=== PATIENT | female | born 1995 | race Caucasian/White ===

== ENCOUNTER 2017-01-20 18:10 | Emergency (ER) | payer BC ==
[2017-01-20 18:15] VITALS: BP 120/67; PULSE 85; TEMP 98.7; BMI 21.9
[2017-01-20] MEDS ORDERED: DIPHTH,PERTUSS(ACELL),TET 0.5 ML DISP.SYRIN IM ONE (18:32)
--- NOTE | 2017-01-20 19:05 | PDOC ---
[id number] No Limitations - History of Present Illness Initial Comments: 01/20/17 19:06 Patient is a 21 year old female, right hand dominant, with no significant past medical history who presents to the ED with laceration to the right index finger. Patient states that she was doing the dishes as she cut her finger on a broken glass, the glass did not shatter. Patient is unsure of her last Tetanus shot. <Cristiane Durán - Last Filed: 01/20/17 19:06> - General History Source: Patient Exam Limitations: No Limitations <Donell Garay - Last Filed: 01/28/17 07:38> - General Chief Complaint: Laceration Stated Complaint: LACERATION TO RIGHT INDEX FINGER Time Seen by Provider: 01/20/17 18:21 Past History <Cristiane Durán - Last Filed: 01/20/17 19:06> - Past Medical History Other medical history: PT DENIES - Immunization History Immunization Up to Date: Yes - Psycho/Social/Smoking Cessation Hx Anxiety: No Suicidal Ideation: No Smoking Status: No Smoking History: Current some day smoker Have you smoked in the past 12 months: No Number of Cigarettes Smoked Daily: 1 Information on smoking cessation initiated: No Hx Alcohol Use: Yes (OCCASIONALLY) Drug/Substance Use Hx: No Substance Use Type: None <Donell Garay - Last Filed: 01/28/17 07:38> - Past Medical History Allergies/Adverse Reactions: Allergies Allergy/AdvReac Type Severity Reaction Status Date / Time No Known Allergies Allergy Verified 01/20/17 18:12 Home Medications: Ambulatory Orders NK [No Known Home Medication] 03/20/15 Review of Systems - Review of Systems Able to Perform ROS?: Yes Comments:: 01/20/17 19:07 GENERAL/CONSTITUTIONAL: No fever or chills. No weakness. HEAD, EYES, EARS, NOSE AND THROAT: No change in vision. No ear pain or discharge. No sore throat. CARDIOVASCULAR: No chest pain or shortness of breath. RESPIRATORY: No cough, wheezing, or hemoptysis. GASTROINTESTINAL: No nausea, vomiting, diarrhea or constipation. GENITOURINARY: No dysuria, frequency, or change in urination. MUSCULOSKELETAL: No joint or muscle swelling or pain. No neck or back pain. SKIN: (+)laceration to 2nd right digit. No rash NEUROLOGIC: No headache, vertigo, loss of consciousness, or change in strength/ sensation. ENDOCRINE: No increased thirst. No abnormal weight change. HEMATOLOGIC/LYMPHATIC: No anemia, easy bleeding, or history of blood clots. ALLERGIC/IMMUNOLOGIC: No hives or skin allergy. <Cristiane Durán - Last Filed: 01/20/17 19:06> *Physical Exam - Vital Signs Last Vital Signs Temp Pulse Resp BP Pulse Ox 98.7 F 85 18 120/67 100 01/20/17 18:11 01/20/17 18:11 01/20/17 18:11 01/20/17 18:11 01/20/17 18:11 - Physical Exam Comments: 01/20/17 19:07 GENERAL/CONSTITUTIONAL: No fever or chills. No weakness. HEAD, EYES, EARS, NOSE AND THROAT: No change in vision. No ear pain or discharge. No sore throat. CARDIOVASCULAR: No chest pain or shortness of breath. RESPIRATORY: No cough, wheezing, or hemoptysis. GASTROINTESTINAL: No nausea, vomiting, diarrhea or constipation. GENITOURINARY: No dysuria, frequency, or change in urination. MUSCULOSKELETAL: No joint or muscle swelling or pain. No neck or back pain. SKIN: (+)laceration to 2nd right digit. No rash NEUROLOGIC: No headache, vertigo, loss of consciousness, or change in strength/ sensation. ENDOCRINE: No increased thirst. No abnormal weight change. HEMATOLOGIC/LYMPHATIC: No anemia, easy bleeding, or history of blood clots. ALLERGIC/IMMUNOLOGIC: No hives or skin allergy. <Cristiane Durán - Last Filed: 01/20/17 19:06> - Vital Signs Last Vital Signs Temp Pulse Resp BP Pulse Ox 98.7 F 85 18 120/67 100 01/20/17 18:11 01/20/17 18:11 01/20/17 18:11 01/20/17 18:11 01/20/17 18:11 - Physical Exam Comments: PE: Full strength of extension and flexion of all digits. < 2 sec cap refill. Sensation intact throughout. <Donell Garay - Last Filed: 01/28/17 07:38> Procedures - Laceration/Wound Repair Right 2nd digit Wound Length: to 2.5 cm Wound Explored: clean Wound's Depth, Shape: superficial Irrigated w/ Saline: Yes Betadine Prep: Yes Anesthesia: 1% Lidocaine Amount of Anesthetic (ccs): 2 Wound Debrided: minimal Wound Repaired With: Sutures Suture Size/Type: 4:0 Number of Sutures: 3 Layer Closure: No <Donell Garay - Last Filed: 01/28/17 07:38> ED Treatment Course - Medications Given in the ED: ED Medications Discontinued Medications Generic Name Dose Route Start Last Admin Trade Name Freq PRN Reason Stop Dose Admin Diphtheria/Tetanus/Acell Pertussis 0.5 ml 01/20/17 18:32 01/20/17 18:42 Boostrix - IM 01/20/17 18:33 0.5 ml .ONCE ONE Administration <Cristiane Durán - Last Filed: 01/20/17 19:06> - Medications Given in the ED: ED Medications Discontinued Medications Generic Name Dose Route Start Last Admin Trade Name Freq PRN Reason Stop Dose Admin Diphtheria/Tetanus/Acell Pertussis 0.5 ml 01/20/17 18:32 01/20/17 18:42 Boostrix - IM 01/20/17 18:33 0.5 ml .ONCE ONE Administration <Donell Garay - Last Filed: 01/28/17 07:38> Medical Decision Making - Medical Decision Making 01/20/17 19:04 A portion of this note was documented by scribe services under my direction. I have reviewed the details of the note, within reason, and agree with the documentation with the following case summary and management plan written by me. Patient treated in the ED. Nursing notes are reviewed and incorporated into the medical decision-making. Vital signs reviewed. Peripheral IV access obtained by the nurse, laboratory studies are drawn and sent, reviewed and interpreted by myself. Vital Signs Temp Pulse Resp BP Pulse Ox 98.7 F 85 18 120/67 100 01/20/17 18:11 01/20/17 18:11 01/20/17 18:11 01/20/17 18:11 01/20/17 18:11 21-year-old female with no medical history presents with laceration to second digit on the right hand. Patient is right-hand dominant. She has like herself a glass. Glass denies shattered. Last tetanus unknown. Wound was irrigated with Betadine and iodine and normal saline. Local anesthesia was achieved with 1% lidocaine without epinephrine. 3 4-0 nylon interested sutures placed with excellent approximation. Scar precautions were given. Tetanus was updated. Wound care sutures were given. Patient instructed to return in 7-10 days for wound reevaluation and suture removal. I discussed the physical exam findings, ancillary test results and final diagnoses with the patient. I answered all of the patient's questions. The patient was satisfied with the care received and felt comfortable with the discharge plan and treatment plan. The patient will call their primary care physician within 24 hours to arrange follow-up and will return to the Emergency Department with any new, persistant or worsening symptoms. <Donell Garay - Last Filed: 01/28/17 07:38> *DC/Admit/Observation/Transfer - Attestations Scribe Attestion: 01/20/17 19:07 Documentation prepared by GENNY Thompson, acting as biomedical instrument technician for Donell Garay MD. <Cristiane Durán - Last Filed: 01/20/17 19:06> <Donell Garay - Last Filed: 01/28/17 07:38> Diagnosis at time of Disposition: Laceration - Discharge Dispostion Disposition: HOME Condition at time of disposition: Stable - Patient Instructions Printed Discharge Instructions: DI for Laceration Repair, DI for Laceration Repair -- Simple Additional Instructions: You have [address] Your tetanus was updated. Please remove the sutures in 7 to 10 days. You may return to the ER or go to your doctor. Apply a thin layer of bacitracin every 12 hours for the next 48 hours. Cover the wound from the sun to minimize scarring.
== END 2017-01-20 19:10 | disposition home or self-care (01) ==
LOC: FER 18:10
PROC: 0HQFXZZ Repair Right Hand Skin, External Approach (ICD-10-PCS; principal; 2017-01-20)
PROC: 3E0234Z Introduction of Serum, Toxoid and Vaccine into Muscle, Percutaneous Approach (ICD-10-PCS; 2017-01-20)
DX: S61.210A Laceration without foreign body of right index finger without damage to nail, initial encounter (principal); W25.XXXA Contact with sharp glass, initial encounter; Y93.G1 Activity, food preparation and clean up; Y92.000 Kitchen of unspecified non-institutional (private) residence as the place of occurrence of the external cause
CPT/HCPCS: 90715; 99282-25

== ENCOUNTER 2017-02-16 19:31 | Emergency (ER) | payer BC ==
--- NOTE | 2017-02-16 19:44 | PDOC ---
History of Present Illness - General History Source: Patient Exam Limitations: No Limitations - History of Present Illness Initial Comments: 02/16/17 19:50 The patient is a 21 year old female with no significant past medical history who presents to the ED s/p right thumb injury 2 days ago. The patient reports she fell backward and jammed her right thumb. She reports pain at the base of her right thumb with redness and swelling. She states she took ibuprofen with no relief of present symptoms. Denies fevers or chills. Denies headache. Denies rashes or lesions. Denies nausea, vomiting, or diarrhea. Denies any other symptoms. <Raffi Encarnacion - Last Filed: 02/16/17 19:49> <Joel Patel - Last Filed: 02/17/17 03:52> - General Chief Complaint: Injury Stated Complaint: RIGHT THUMB INJURY Past History <Raffi Encarnacion - Last Filed: 02/16/17 19:49> - Immunization History Immunization Up to Date: Yes - Psycho/Social/Smoking Cessation Hx Anxiety: No Suicidal Ideation: No Smoking Status: No Smoking History: Former smoker Have you smoked in the past 12 months: No Number of Cigarettes Smoked Daily: 1 Information on smoking cessation initiated: No Hx Alcohol Use: No Drug/Substance Use Hx: No Substance Use Type: None <Joel Patel - Last Filed: 02/17/17 03:52> - Past Medical History Allergies/Adverse Reactions: Allergies Allergy/AdvReac Type Severity Reaction Status Date / Time No Known Allergies Allergy Verified 02/16/17 19:35 Home Medications: Ambulatory Orders NK [No Known Home Medication] 03/20/15 Review of Systems - Review of Systems Able to Perform ROS?: Yes Comments:: 02/16/17 19:51 CONSTITUTIONAL: Absent: fever, chills, diaphoresis, generalized weakness, malaise, loss of appetite HEENT: Absent: rhinorrhea, nasal congestion, throat pain, throat swelling, difficulty swallowing, mouth swelling, ear pain, eye pain, visual Changes CARDIOVASCULAR: Absent: chest pain, syncope, palpitations, irregular heart rate, lightheadedness , peripheral edema RESPIRATORY: Absent: cough, shortness of breath, dyspnea with exertion, orthopnea, wheezing, stridor, hemoptysis GASTROINTESTINAL: Absent: abdominal pain, abdominal distension, nausea, vomiting, diarrhea, constipation, melena, hematochezia GENITOURINARY: Absent: dysuria, frequency, urgency, hesitancy, hematuria, flank pain, genital pain MUSCULOSKELETAL: + thumb injury Absent: myalgia, arthralgia SKIN: Absent: rash, itching, pallor HEMATOLOGIC/IMMUNOLOGIC: Absent: easy bleeding, easy bruising, lymphadenopathy, frequent infections ENDOCRINE: Absent: unexplained weight gain, unexplained weight loss, heat intolerance, cold intolerance NEUROLOGIC: Absent: headache, focal weakness or paresthesias, dizziness, unsteady gait, seizure, mental status changes, bladder or bowel incontinence PSYCHIATRIC: Absent: anxiety, depression, suicidal or homicidal ideation, hallucinations. All Other Systems: Reviewed and Negative <Raffi Encarnacion - Last Filed: 02/16/17 19:49> *Physical Exam - Vital Signs Last Vital Signs Temp Pulse Resp BP Pulse Ox 97.7 F 82 15 132/80 100 02/16/17 19:35 02/16/17 19:35 02/16/17 19:35 02/16/17 19:35 02/16/17 19:35 - Physical Exam Comments: 02/16/17 19:51 GENERAL: Well-appearing, well-nourished. No apparent distress. HEENT: Normocephalic, atraumatic. PERRL, EOM intact. CARDIOVASCULAR: Normal S1, S2. Regular rate and rhythm. PULMONARY: Clear to auscultation bilaterally. ABDOMEN: Soft, non-distended, non-tender. EXTREMITIES: + tender at the base of the right thumb. Normal ROM in all four extremities. No gross deformities. SKIN: Warm, dry. No rash NEUROLOGICAL: No focal neurological deficits. <Raffi Encarnacion - Last Filed: 02/16/17 19:49> - Vital Signs Last Vital Signs Temp Pulse Resp BP Pulse Ox 97.7 F 82 15 132/80 100 02/16/17 19:35 02/16/17 19:35 02/16/17 19:35 02/16/17 19:35 02/16/17 19:35 <Joel Patel - Last Filed: 02/17/17 03:52> Medical Decision Making - Medical Decision Making 02/17/17 03:51 plain films -, as read by me, referred to radiology for definitive review thumb spica splint placed by me a/p finger sprain nsaids ortho fu <Joel Patel - Last Filed: 02/17/17 03:52> *DC/Admit/Observation/Transfer - Attestations Scribe Attestion: 02/16/17 19:51 Documentation prepared by Raffi Encarnacion, acting as bilingual medical assistant for Emergency Dept,Physician, <Raffi Encarnacion - Last Filed: 02/16/17 19:49> <Joel Patel - Last Filed: 02/17/17 03:52> Diagnosis at time of Disposition: Sprain of hand, thumb, right Qualifiers: Encounter type: initial encounter Sprain of finger site: unspecified site Qualified Code(s): S63.601A - Unspecified sprain of right thumb, initial encounter - Discharge Dispostion Disposition: HOME Condition at time of disposition: Good - Referrals Referrals: Jose Mckeon MD [Staff Physician] - 1 week - Patient Instructions Printed Discharge Instructions: DI for Finger Sprain, How to Take Care of Your Splint
[2017-02-16 19:50] VITALS: BP 132/80; PULSE 82; TEMP 97.7; BMI 22.6
== END 2017-02-16 20:19 | disposition home or self-care (01) ==
LOC: FER 19:31
DX: S63.601A Unspecified sprain of right thumb, initial encounter (principal); X58.XXXA Exposure to other specified factors, initial encounter; Y93.89 Activity, other specified; Y92.9 Unspecified place or not applicable; Z87.891 Personal history of nicotine dependence
CPT/HCPCS: 73140-TC-RT; 99281-25

== ENCOUNTER 2018-05-29 20:27 | Emergency (ER) | payer BC ==
--- NOTE | 2018-05-29 20:43 | PDOC ---
Rapid Medical Evaluation Time Seen by Provider: 05/29/18 20:40 Medical Evaluation: Allergies Allergy/AdvReac Type Severity Reaction Status Date / Time No Known Allergies Allergy Verified 02/16/17 19:35 05/29/18 20:41 I have performed a brief in-person evaluation of this patient. The patient presents with a chief complaint of: ?fb sensation w/ discomfort to L neck x 3-4 days. Seen in UC today and referred to ED. No pmhx Pertinent physical exam findings: unremarkable I have ordered the following:soft tissue neck The patient will proceed to the ED for further evaluation. Discharge Disposition - Diagnosis Neck discomfort - Referrals - Patient Instructions - Post Discharge Activity
[2018-05-29 20:48] VITALS: BP 121/68; PULSE 64; TEMP 98.1; BMI 26.1
--- NOTE | 2018-05-29 21:07 | PDOC ---
History of Present Illness - General Chief Complaint: Head/Neck problem Stated Complaint: LUMP IN THE THROAT Time Seen by Provider: 05/29/18 20:40 History Source: Patient Exam Limitations: No Limitations - History of Present Illness Initial Comments: 05/29/18 21:02 23 yr female with no pmhx c/o fullness feeling to the left side of her neck when she swallows for 3 days no pain, denies ingestion of possible foreign body. no fever no chills. Severity: mild Associated Symptoms: reports: denies symptoms Past History - Past Medical History Allergies/Adverse Reactions: Allergies Allergy/AdvReac Type Severity Reaction Status Date / Time No Known Allergies Allergy Verified 02/16/17 19:35 Home Medications: Ambulatory Orders NK [No Known Home Medication] 03/20/15 COPD: No Other medical history: Pt denies - Immunization History Immunization Up to Date: Yes - Suicide/Smoking/Psychosocial Hx Smoking Status: No Smoking History: Never smoked Have you smoked in the past 12 months: No Number of Cigarettes Smoked Daily: 1 Information on smoking cessation initiated: No Hx Alcohol Use: No Drug/Substance Use Hx: No Substance Use Type: None *Physical Exam - Vital Signs Last Vital Signs Temp Pulse Resp BP Pulse Ox 98.1 F 64 18 121/68 98 05/29/18 20:46 05/29/18 20:46 05/29/18 20:46 05/29/18 20:46 05/29/18 20:46 - Physical Exam General Appearance: Yes: Nourished, Appropriately Dressed HEENT: positive: EOMI, THANH, Normal ENT Inspection, TMs Normal, Pharynx Normal Neck: positive: Supple, Tender lateral (left of the thyroid tt deep palpation ) . negative: Tender, Lymphadenopathy (R), Lymphadenopathy (L) Respiratory/Chest: positive: Lungs Clear, Normal Breath Sounds. negative: Chest Tender Cardiovascular: positive: Regular Rhythm, Regular Rate Gastrointestinal/Abdominal: positive: Normal Bowel Sounds, Soft Musculoskeletal: positive: Normal Inspection Extremity: positive: Normal Capillary Refill, Normal Inspection, Normal Range of Motion Integumentary: positive: Normal Color, Dry, Warm Neurologic: positive: Fully Oriented, Alert, Normal Mood/Affect, Normal Response , Motor Strength 5/5 Medical Decision Making - Medical Decision Making 05/29/18 21:05 cc: left sided sensation of swallowed FB no fever no vomiting no sore throat pt is able to eat and drink will get soft tissue of neck xray reviewed with negative FB neg thumbprint sign will give one dose decadron dc home strict follow up with ENT 05/29/18 22:20 pt aware she may need further workup outside of the ER for follow up. pt agrees 05/31/18 17:00 *DC/Admit/Observation/Transfer Diagnosis at time of Disposition: Neck discomfort - Discharge Dispostion Disposition: HOME Condition at time of disposition: Fair - Referrals Referrals: Rosaline Hernandez MD [Primary Care Provider] - - Patient Instructions Additional Instructions: please follow with the ENT doctor for follow up call [phone] friday to make appointment the xray done today is normal please gargle with warm salt water 4-5 times a day return if any worsening symptoms - Post Discharge Activity
[2018-05-29] MEDS ORDERED: DEXAMETHASONE 4 MG TABLET (FP) PO STA (22:15)
[2018-05-29] MEDS ORDERED: DEXAMETHASONE SOD PHOSPHATE 10 MG/1 ML VIAL ONE (22:18)
== END 2018-05-29 22:20 | disposition home or self-care (01) ==
LOC: JERFT 20:27
DX: R09.89 Other specified symptoms and signs involving the circulatory and respiratory systems (principal); J39.2 Other diseases of pharynx
CPT/HCPCS: 70360-TC-FY; 84703; 99281-25

== ENCOUNTER 2022-06-13 20:05 | Emergency (ER) | payer BC, OTHER ==
[2022-06-13 20:30] VITALS: BP 117/53; PULSE 72; RESP 16; TEMP 98.5; BMI 27.4
== END 2022-06-13 21:14 | disposition home or self-care (01) ==
LOC: FER 20:05
DX: S63.501A Unspecified sprain of right wrist, initial encounter (principal); W50.0XXA Accidental hit or strike by another person, initial encounter
CPT/HCPCS: 73110-TC-RT-FY; 73130-TC-RT-FY; 99283-25